=== PATIENT | male | born 1995 | race Caucasian/White ===

== ENCOUNTER → 2018-08-21 19:59 | Outpatient (CLI) | payer OTHER, SELFPAY | PROVIDERS: Family Provider Nurse Practitioner Family; PCP Nurse Practitioner Family; Visit Provider Nurse Practitioner Family | DX: R06.83 Snoring (principal) | CPT/HCPCS: 95810 ==

== ENCOUNTER → 2018-09-06 07:09 | Outpatient (CLI) | payer OTHER, SELFPAY ==
[2018-09-06 08:07] LABS: Absolute Lymphocyte Count 1.78 X10^3/ul (0.83-4.51); Absolute Neutrophil Count 3.2 X10^3/uL (2.0-7.7); Basophil# 0.02 X10^3/uL; Basophil% 0.4 % (0-1); Eosinophil# 0.11 X10^3/uL; Hematocrit 46.8 % (40-54); Hemoglobin 16.4 g/dl (13.0-16.5); Lymphocyte # 1.78 X10^3/ul (4.0); Lymphocyte % 31.6 % (19-41); Mean Corpuscular Hgb 29.9 pg (27.0-32.0); Mean Corpuscular Volume 85.4 fL (80-94); Monocyte# 0.54 X10^3/uL; Monocyte% 9.6 % (0-10); Neutrophil # 3.18 X10^3/uL (2.7-7.7); Neutrophil % 56.2 % (47-70); Platelet Count 258 K/mm3 (150-450); RBC Distribution Width CV 12.6 % (11.6-14.6); RBC Distribution Width SD 38.7 fl (35.1-43.9); Red Blood Count 5.48 M/mm3 (4.6-6.2); White Blood Count 5.6 K/mm3 (4.4-11.0)
[2018-09-06 08:10] LABS: POSITIVE COUNT NO; POSITIVE DIFFERENTIAL NO; POSITIVE MORPHOLOGY NO
[2018-09-06 08:45] LABS: ALB/GLOB Ratio 1.2 RATIO (0.9-2.4); AST(SGOT) 22 U/L (15-37); Alanine Aminotransfer ALT/SGPT 41 U/L (16-61); Albumin, Serum 3.8 g/dL (3.2-5.0); Alkaline Phosphatase 78 U/L (45-117); Anion Gap 7 (5-15); BUN 13 mg/dL (7-18); BUN/Creat Ratio 12.6 RATIO (10-20); Calcium,Total 8.8 mg/dL (8.5-10.1); Chloride 105 mmol/L (98-107); Cholesterol 133 mg/dL (200); Creatinine, Serum 1.03 mg/dL (0.70-1.30); EST Glomerular Filtration Rate 95 mL/min (>60); Est Glom Filt Rate - Afr Amer 115 mL/min (>60); Globulin 3.1 g/dL (2.2-4.2); Glucose 94 mg/dL (74-106); High Density Lipoprotein 47 mg/dL; Potassium 4.1 mmol/L (3.5-5.1); Protein, Total 6.9 g/dL (6.4-8.2); Sodium Level 141 mmol/L (136-145); Thyroid Stim Hormone (TSH) 2.01 uIU/mL (0.358-3.74); Triglycerides 88 mg/dL; Very Low Density Lipoprotein 18 mg/dL (5-40)
== END ==
PROVIDERS: Family Provider Family Medicine; PCP Family Medicine; Referring Provider Nurse Practitioner Family; Visit Provider Nurse Practitioner Family
DX: E66.9 Obesity, unspecified (principal); I10 Essential (primary) hypertension
CPT/HCPCS: 36415; 80053; 80061; 84443; 85025

== ENCOUNTER 2018-09-09 09:17 | Outpatient (RCR) | payer OTHER, SELFPAY | END 2018-09-18 23:59 | LOC: NS 09:17 | PROVIDERS: Family Provider Family Medicine; PCP Family Medicine; Visit Provider Internal Medicine | DX: E66.01 Morbid (severe) obesity due to excess calories (principal); Z68.41 Body mass index [BMI] 40.0-44.9, adult; Z71.3 Dietary counseling and surveillance | CPT/HCPCS: 97802 ==

== ENCOUNTER 2018-10-14 16:00 | Outpatient (RCR) | payer OTHER, SELFPAY | END 2018-10-18 23:59 | LOC: NS 16:00 | PROVIDERS: Family Provider Family Medicine; PCP Family Medicine; Visit Provider Internal Medicine | DX: E66.01 Morbid (severe) obesity due to excess calories (principal); Z68.41 Body mass index [BMI] 40.0-44.9, adult; Z71.3 Dietary counseling and surveillance | CPT/HCPCS: 97803 ==

== ENCOUNTER → 2018-10-14 20:00 | Outpatient (CLI) | payer OTHER, SELFPAY | PROVIDERS: Family Provider Family Medicine; PCP Family Medicine; Visit Provider Nurse Practitioner Acute Care | DX: G47.30 Sleep apnea, unspecified (principal) | CPT/HCPCS: 95811 ==

== ENCOUNTER 2018-11-07 11:24 | Outpatient (RCR) | payer OTHER, SELFPAY ==
[2018-09-06 10:43] VITALS: BMI 40.8
== END 2018-11-18 23:59 ==
LOC: NS 11:24
PROVIDERS: Family Provider Family Medicine; PCP Family Medicine; Visit Provider Internal Medicine
DX: E66.01 Morbid (severe) obesity due to excess calories (principal); Z68.41 Body mass index [BMI] 40.0-44.9, adult; Z71.3 Dietary counseling and surveillance
CPT/HCPCS: 97803

== ENCOUNTER 2018-11-28 13:52 | Outpatient (RCR) | payer OTHER, SELFPAY ==
[2018-09-06 10:43] VITALS: BMI 40.8
== END 2018-12-19 23:59 ==
LOC: NS 13:52
PROVIDERS: Family Provider Family Medicine; PCP Family Medicine; Visit Provider Internal Medicine
DX: E66.01 Morbid (severe) obesity due to excess calories (principal); Z68.41 Body mass index [BMI] 40.0-44.9, adult; Z71.3 Dietary counseling and surveillance
CPT/HCPCS: 97803

== ENCOUNTER 2019-01-01 15:33 | Outpatient (RCR) | payer OTHER, SELFPAY ==
[2018-12-05 14:02] VITALS: BMI 41.0
== END 2019-01-16 23:59 ==
LOC: NS 15:33
PROVIDERS: Family Provider Family Medicine; PCP Family Medicine; Visit Provider Internal Medicine
DX: E66.01 Morbid (severe) obesity due to excess calories (principal); Z68.41 Body mass index [BMI] 40.0-44.9, adult; Z71.3 Dietary counseling and surveillance
CPT/HCPCS: 97803

== ENCOUNTER 2019-02-10 16:18 | Outpatient (RCR) | payer OTHER, SELFPAY ==
[2018-12-05 14:02] VITALS: BMI 41.0
== END 2019-02-16 23:59 ==
LOC: NS 16:18
PROVIDERS: Family Provider Family Medicine; PCP Family Medicine; Visit Provider Internal Medicine
DX: E66.01 Morbid (severe) obesity due to excess calories (principal); Z68.41 Body mass index [BMI] 40.0-44.9, adult; Z71.3 Dietary counseling and surveillance
CPT/HCPCS: 97803

== ENCOUNTER → 2020-06-08 12:55 | Outpatient (CLI) | payer OTHER, SELFPAY ==
[2020-06-08 12:49] VITALS: BMI 41.0
--- NOTE | 2020-06-08 12:56 | RAD_ITS ---
STUDY: X-RAY - LEFT SHOULDER REASON FOR EXAM: Pain after lifting weights. TECHNIQUE: 4 view(s) of the shoulder. COMPARISON: None. FINDINGS: Normal glenohumeral articulation. Normal acromioclavicular joint. Normal acromion. Normal humeral head and visualized proximal humerus. The soft tissue structures are unremarkable. Normal visualized pulmonary apex. RAD/Shoulder min 2 Views IMPRESSION: Normal x-ray examination of the left shoulder. Electronically Signed: Sammy Castro MD at 13:31 EDT Tel , Service support ,
== END ==
PROVIDERS: PCP Family Medicine; Referring Provider Orthopaedic Surgery; Visit Provider Orthopaedic Surgery
DX: M25.512 Pain in left shoulder (principal)
CPT/HCPCS: 73030

== ENCOUNTER 2020-07-12 15:00 | Outpatient (RCR) | payer OTHER, SELFPAY ==
[2020-06-08 13:08] VITALS: BMI 33.7
--- NOTE | 2020-06-11 07:54 | HP.PTEVAL ---
Patient's Visit Information NGHIA MORRISON is a 24 year old M referred to Physical Therapy by Dr. Digna Hernadez DO with a diagnosis of L shoulder pain. Date of Evaluation: 06/11/20 Physical Therapist: Clint Alexander, DPT, OCS, CSCS - Visit Plan Frequency: 1-3x/week Duration: 4-6 Weeks Plan: start weekly to manage condition with Ret adn activitiy modification progressing to RC and scap/postural strength next session and then back to lifting if improved as he is 65% better right now. Will go to 3x/week for 4 weeks for ionto if improvment slows. Pec stretch adn phase 3 next session if doing better than 65% - Subjective Started wroking out again, benching one day and getting up from bench the L shoulder flet sore. and got worse as the day went along. That was 3 weeks ago. last 2 weeks has not gotten better. No pops or sudden pains. No bruising. External rotation hurts anteriorly. Abduction hurts. Improving since talked to marylin last week. Now is tolerable but there. She sent for PT. x rays were OK. Pin is front L shoulder adn is comfortable at rest. Pain is wthere at times in am and loosens up. Reaching up causes sensation. A little slight pain behind him. No numbness or tingling. Pain is not a problem at night. Is a teacher and coaches football. Football practice is not llimited but hurts to catch a ball sometimes. Stopped lifting after that incident. Basic ADLs are OK. Classroom will be OK, is R handed. - Pain L shoulder pain. Pain Intensity (Out of 10): 0 Pain Intensity Range: 0, 4 - Objective Posture is forward shoulder extreme and postural kyphosis. Tender to palpation slightly over biceps tendon adn moderately at supraspinatus tendon insertion. + L HK and neer. - labral tests, - ext rotation lag, - drop arm. AROM cervical and scap WNL adn painfree. Elbow and L wrist move well and without pain also. R shoulder aROM fulla dn painfree. L shoulder AROM full but pain at end range of ext rotation adn elevation, better at 90 degrees. reflexes 2/3 bi and triceps B. Sensation UE WNL to gross light touch. L shoulder rotators strong but pain with IR and ER, flexiona nd abduction also painful at 90 degrees but strong 4+/5. Biceps 5/5 adn triceps 5/5 without pain. - Goals Goal 1:: Patient have full aROM L shoulder without pain. Goal Time Frame: 2-4 Weeks Goal 2:: I approp HEp to manage condition and minimize future problems Goal Time Frame: 4-6 Weeks Goal 3:: Catch ball overhead without pain Goal Time Frame: 4-6 Weeks Goal 4:: Sleep without waking with pain Goal Time Frame: 4-6 Weeks - Rehabilitation Potential Physical Therapy Diagnosis: L shoulder pain likely supraspinatus strain Rehabilitation Potential: Good - Anticipated Interventions Patient/Client Instruction: Educate patient on: Condition, Plan of Care For the Purpose of:: To decrease pain, To decrease swelling/inflammation, To improve muscle performance and motor function, To increase tolerance to activity/condition/position Therapeutic Exercise to Include: Strength training, Postural training, Flexibilty training, Neuromotor development, Passive ROM, Active ROM, Scapular Strength/Stabilization For the Purpose of:: To decrease pain, To decrease swelling/inflammation, To improve muscle performance and motor function Manual Therapy Techniques to Include: Mobilization For the Purpose of:: To decrease pain Iontophoresis (with Dexamethozone, with Acetic acid): Yes Cryotherapy (ice pack, ice massage): Yes For the Purpose of:: To decrease swelling/inflammation Thank you for the opportunity to evaluate your patient. For Medicare and Medicare HMO plans, please review the plan of care and approve it. It will need to be FAXED BACK to us at [phone] for Medicare purposes. For Medicare only, by signing this I certify the plan of care. Please let me know if there are questions or concerns regarding this plan of care. Physician Signature: Date:
--- NOTE | 2020-08-26 09:59 | HP.PT.NRP ---
NGHIA MORRISON was seen in my office for initial evaluation on 06/11/20. The following Plan of Care was established for this patient: Initial Frequency: 1-3x/week Initial Duration: 4-6 Weeks Patient/Client Instruction: Educate patient on: Condition, Plan of Care For the Purpose of:: To decrease pain, To decrease swelling/inflammation, To improve muscle performance and motor function, To increase tolerance to activity/condition/position Therapeutic Exercise to Include: Strength training, Postural training, Flexibilty training, Neuromotor development, Passive ROM, Active ROM, Scapular Strength/Stabilization For the Purpose of:: To decrease pain, To decrease swelling/inflammation, To improve muscle performance and motor function Manual Therapy Techniques to Include: Mobilization For the Purpose of:: To decrease pain Iontophoresis (with Dexamethozone, with Acetic acid): Yes Cryotherapy (ice pack, ice massage): Yes For the Purpose of:: To decrease swelling/inflammation This patient was last seen in our office 07/12/20. Pertinent comments regarding their Physical therapy will appear below: Pt seen 5 visits of POC and was 75% better. He was to f/u three weeks later but did not schedule or attend. at this point, it has been over 5 weeks and I will discontinue due to nonattendance. At this point I will be discontinuing this patient from physical therapy. I would be happy to see this patient again in the future if found appropriate by the physician. Thank you! Clint Alexander, DPT, OCS, CSCS
== END 2020-07-12 19:00 | disposition home or self-care (01) ==
LOC: PT 15:00
PROVIDERS: PCP Family Medicine; Referring Provider Orthopaedic Surgery; Visit Provider Orthopaedic Surgery
DX: M25.512 Pain in left shoulder (principal)
CPT/HCPCS: 97110; 97161; 97530

== ENCOUNTER 2022-01-24 16:03 | Outpatient (CLI) | payer OTHER, SELFPAY ==
[2022-01-24 17:16] LABS: Absolute Lymphocyte Count 1.98 X10^3/uL (0.83-4.51); Absolute Neutrophil Count 5.4 X10^3/uL (2.0-7.7); Basophil# 0.03 X10^3/uL; Basophil% 0.4 % (0-1); Eosinophil# 0.04 X10^3/uL; Eosinophils% 0.5 % (0-5); Hematocrit 49.6 % (40-54); Hemoglobin 17.2 g/dL (13.0-16.5); Lymphocyte # 1.98 X10^3/ul (0.83-4.51); Lymphocyte % 24.7 % (19-41); Mean Corp Hgb Conc 34.7 g/dL (32-36); Mean Corpuscular Hgb 30.6 pg (27.0-32.0); Mean Corpuscular Volume 88.1 fL (80-94); Mean Platelet Vol. 9.4 fl (6.2-12.0); Monocyte# 0.52 X10^3/uL; Monocyte% 6.5 % (0-10); NRBC Flagged by Analyzer 0 % (0-5); Neutrophil # 5.44 X10^3/uL (2.7-7.7); Neutrophil % 67.7 % (47-70); Platelet Count 296 K/mm3 (150-450); RBC Distribution Width CV 11.9 % (11.6-14.6); RBC Distribution Width SD 38.1 fl (35.1-43.9); Red Blood Count 5.63 M/mm3 (4.6-6.2)
[2022-01-24 17:51] LABS: ALB/GLOB Ratio 1.3 RATIO (0.9-2.4); AST(SGOT) 23 U/L (15-37); Alanine Aminotransfer ALT/SGPT 36 U/L (16-61); Albumin, Serum 4.5 g/dL (3.2-5.0); Alkaline Phosphatase 80 U/L (45-117); Anion Gap 6 (5-15); BUN 13 mg/dL (7-18); Calcium,Total 9.4 mg/dL (8.5-10.1); Chloride 104 mmol/L (98-107); Cholesterol 145 mg/dL (200); Creatinine, Serum 1.08 mg/dL (0.70-1.30); EST Glomerular Filtration Rate 88 mL/min (>60); Est Glom Filt Rate - Afr Amer 106 mL/min (>60); Globulin 3.4 g/dL (2.2-4.2); Glucose 91 mg/dL (74-106); High Density Lipoprotein 62 mg/dL; Potassium 4.3 mmol/L (3.5-5.1); Protein, Total 7.9 g/dL (6.4-8.2); Sodium Level 138 mmol/L (136-145); Thyroid Stim Hormone (TSH) 1.55 uIU/mL (0.358-3.74); Triglycerides 39 mg/dL; Very Low Density Lipoprotein 8 mg/dL (5-40)
== END 2022-01-24 23:59 | disposition home or self-care (01) ==
LOC: BIMLAB 16:04
PROVIDERS: PCP Family Medicine; Referring Provider Physician Assistant; Visit Provider Physician Assistant
DX: F41.9 Anxiety disorder, unspecified (principal); Z13.29 Encounter for screening for other suspected endocrine disorder; R13.10 Dysphagia, unspecified
CPT/HCPCS: 36415; 80053; 80061; 84443; 85025

== ENCOUNTER 2022-04-06 05:37 | Day surgery (SDC) | payer OTHER, SELFPAY ==
--- NOTE | 2022-04-06 | ESO_PTH ---
PATIENT: NGHIA MORRISON LOC: EN U#:[id number] AGE/SX: 26/M ROOM: RE04/06/[address]: Dr. Jonny Kinsey DO : 1995 BED: DIS: 04/06/2022 SPEC #: [id number] RECD: 04/06/22 12:08 STATUS: TIFFANY MAU #: [id number] SHAN: 04/06/22 00:[address]: Jonny Kinsey DEPT: SURGICAL PATHOLOGY RECD BY: Agus South ENTERED: 04/06/22 12:08 SP TYPE: PAT ROSSI DR: Dr. David Doran DO Tissues: Esophagus, NOS Procedures: Special Stain Group II Surgery Specimen Level IV Alcian Blue/PAS (control) HEADER OPERATION: EGD ([facility] [place]) PRE-OP DIAGNOSIS: GERD, esophageal cancer TISSUE SUBMITTED: Distal esophagus biopsy MICROSCOPIC DIAGNOSIS Distal esophagus, biopsy: Gastroesophageal junction with chronic inflammation. Focal changes of reflux. 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 No evidence of dysplasia. See comment. AM:blossom 04/07/2022 COMMENT Alcian blue/PAS stain with matched control supports the above diagnosis. MICROSCOPIC DESCRIPTION Slides are reviewed. GROSS DESCRIPTION Received in fixative is one container labeled with the patient's name and designated distal esophagus biopsy. The specimen consists of multiple irregular fragments of light payan soft tissue that in aggregate measure 1.5 x 0.3 x 0.1 cm. The specimen is totally submitted in one cassette. / SJ:blossom 04/06/2022 TC:3 CPT: 97106, 16656
--- NOTE | 2022-04-06 | IMM_PTH ---
PATIENT: NGHIA MORRISON LOC: EN U#:[id number] AGE/SX: 26/M ROOM: RE04/06/[address]: Dr. Jonny Kinsey DO : 1995 BED: DIS: 04/06/2022 SPEC #: [id number] RECD: 04/07/22 15:06 STATUS: TIFFANY REQ #: [id number] SHAN: 04/06/22 00:[address]: Jonny Kinsey DEPT: IMMUNOHISTOCHEMISTRY RECD BY: Carmen Ayala ENTERED: 04/07/22 15:07 SP TYPE: IMMUNO OTHR DR: Dr. David Doran DO Tissues: Esophagus, NOS Procedures: P53 (initial) KI-67 (add) PHYSICIAN & [place] [id number] SPECIMEN INFORMATION: Tissue Source: Distal esophagus biopsy Clinical Info: GERD, esophageal cancer Specimen Number: [id number] CPT code: 80326, 66185 METHODOLOGY: Deparaffinized sections of prefer/formalin-fixed tissue or PAP/DQ stained slides are incubated with monoclonal/polyclonal antibodies/oligonucleotide probes. Localization is made via biotin free immunoperoxidase method. Appropriate controls are performed and reacted as expected. Results on target cell population are indicated in the following table: RESULTS: ANTIBODY / CLONE RESULT P53 (DO-7) negative Ki-67 (30-9) positive, low These tests were developed and their performance characteristics determined by [facility]. They may not have been cleared or approved by the U.S. Food and Drug Administration. The FDA has determined that such clearance or approval is not necessary. The above immunohistochemical/dualISH markers are ordered and reviewed by the Pathologist. INTERPRETATION: Distal esophagus, biopsy: No evidence of dysplasia. AM:blossom 04/10/2022
[2022-04-06 06:08] VITALS: BP 152/83; PULSE 16; RESP 16; TEMP 36.4; O2SAT 100; BMI 32.6
[2022-04-06] MEDS: Lactated Ringers 1,000 ML 15 ML IV (06:11)
--- NOTE | 2022-04-06 06:31 | HP.PCM_ITS ---
History and Physical Date of Admission: 04/06/22 NGHIA MORRISON, is a 26 M who presents to the office today for acid reflux, recent dysphagia, father of esophageal cancer Pt is interested in having an upper endoscopy considering his father's hx of esophageal cancer. Recent 2 yr anniversary of his father's , that caused pt to have significant increase in anxiety. Pt's mother told him to watch for difficulty swallowing food--that caused pt to be hyper focused on swallowing, to the point where he had difficulty swallowing. He went 4 days w/o food, then ate soup, then back to regular foods. With increased anxiety he made poor food choices, that caused him to have acid reflux at night. He used to weigh 300 lbs, he regularly had acid reflux then; since losing weight he hasn't had an issue with GERD until last month. Now that he is back on antianxiety medicine, he feels better in general, not having any dysphagia or acid reflux now. No nausea, vomiting, abd pain. No diarrhea, constipation, melena, hematochezia. 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 ROS Const Constitutional: No fatigue ENT ENT: No difficulty swallowing Gastro GI: Positive for heartburn; No abdominal pain, belching, bloating, change in bowel habits, change in stool character, coffee ground emesis, constipation, cramping, diarrhea, difficulty swallowing, feeling full early, excessive flatus, incontinent of stools, Vomiting blood/hematemesis, Blood in stool, loose stools, Black,tarry stools, nausea/dyspepsia, pain with swallowing, vomiting or other Musc Musculoskeletal: No joint pain Skin Skin: No yellowing of the eye or itchy eyes Psych Psychiatric: Positive for anxiety and No depression Endo Endocrine: No fatigue Aller/Imm Allergy/Immunologic: No itchy eyes Mynor/Lymp Hematologic/Lymphatic: No easy bleeding or easy bruising Exam Const General: cooperative, healthy appearing, well developed, well groomed and anxious Resp Effort & Inspection: normal respiratory effort GI Inspection: normal to inspection Palpation: soft, no hepatosplenomegaly and nontender Quality Reporting Tobacco Screening ([facility] 138) Smoking Status: Never smoker Assessment and Plan Assessment and Plan (1) GERD (gastroesophageal reflux disease): Status: Acute (2) FH: esophageal cancer: Status: Acute Plan - Dian Herndon MARKETING SERVICES MANAGER, MARKETING SERVICES MANAGER-C: 26 yr old male with hx of acid reflux before losing weight and if he makes poor food choices. Recent dysphagia with flare of anxiety, and the anniversary of his father's from esophageal cancer. We will schedule him for EGD to evaluate for Bueno's. f/u 2 wks after EGD I have re-examined the patient. There are no clinical changes since date of exam.
[2022-04-06 06:54] VITALS: BP 101/39; BP 152/83; PULSE 55; RESP 18; TEMP 36.6; O2SAT 97
--- NOTE | 2022-04-06 06:57 | OP.EGD_ITS ---
Patient Name: Romeo Nicolas Procedure Date: 04/06/2022 6:13 AM Date of : 1995 Age: 26 Procedure: Upper GI endoscopy Indications: Heartburn Providers: Jonny Kinsey DO Medicines: Monitored Anesthesia Care Patient Profile: This is a 26 year old male. Refer to note in patient chart for documentation of history and physical. Complications: No immediate complications. Procedure: Pre-Anesthesia Assessment: - Prior to the procedure, a History and Physical was performed, and patient medications and allergies were reviewed. The risks and benefits of the procedure and the sedation options and risks were discussed with the patient. All questions were answered and informed consent was obtained. Patient identification and proposed procedure were verified by the physician in the pre-procedure area. Mental Status Examination: alert and oriented. Airway Examination: normal oropharyngeal airway and neck mobility. Respiratory Examination: clear to auscultation. CV Examination: normal. Prophylactic Antibiotics: The patient does not require prophylactic antibiotics. Prior Anticoagulants: The patient has taken no previous anticoagulant or antiplatelet agents. After reviewing the risks and benefits, the patient was deemed in satisfactory condition to undergo the procedure. The anesthesia plan was to use moderate sedation / analgesia (conscious sedation). Immediately prior to administration of medications, the patient was re-assessed for adequacy to receive sedatives. The heart rate, respiratory rate, oxygen saturations, blood pressure, adequacy of pulmonary ventilation, and response to care were monitored throughout the procedure. The physical status of the patient was re-assessed after the procedure. After obtaining informed consent, the endoscope was passed under direct vision. Throughout the procedure, the patient's blood pressure, pulse, and oxygen saturations were monitored continuously. The gastroscope was introduced through the mouth, and advanced to the second part of duodenum. The upper GI endoscopy was accomplished without difficulty. The patient tolerated the procedure well. Scope In: 6:41:23 AM Scope Out: 6:48:44 AM Total Procedure Duration Time 0 hours 7 minutes 21 seconds Findings: Three tongues of salmon-colored mucosa were present from 35 to 39 cm. Hiatal narrowing was identified at 40 cm. The maximum longitudinal extent of these esophageal mucosal changes was 3 cm in length. Biopsies were taken with a cold forceps for histology. Verification of patient identification for the specimen was done. Estimated blood loss was minimal. A small hiatal hernia was present. The entire examined stomach was normal. The second portion of the duodenum was normal. Impression: - Foreman-colored mucosa suspicious for short-segment Bueno's esophagus. Biopsied. - Small hiatal hernia. - Normal stomach. - Normal second portion of the duodenum. Recommendation: - Discharge patient to home. - Resume previous diet. - Continue present medications. - Await pathology results. Procedure Code(s): --- Professional --- 22642, Esophagogastroduodenoscopy, flexible, transoral; with biopsy, single or multiple CPT copyright 2017 [employer]. All rights reserved. The codes documented in this report are preliminary and upon qualification engineer review may be revised to meet current compliance requirements. Jonny Kinsey DO 04/06/2022 6:56:53 AM This report has been signed electronically. Number of Addenda: 1 Note Initiated On: 04/06/2022 6:13 AM Addendum Number: 1 Addendum Date: 08/18/2022 6:17:33 AM MAC was used as sedation for this procedure. Jonny Kinsey DO 08/18/2022 6:17:36 AM This report has been signed electronically.
--- NOTE | 2022-04-06 06:58 | OP.CCLET_ITS ---
08/18/2022 David Doran Re : Upper GI endoscopy procedure for Romeo Nicolas Dear Dr. Doran This procedure was performed on March. My impressions and recommendations are as follows: Impressions : - Winger-colored mucosa suspicious for short-segment Bueno's esophagus. Biopsied. - Small hiatal hernia. - Normal stomach. - Normal second portion of the duodenum. Recommendations : - Discharge patient to home. - Resume previous diet. - Continue present medications. - Await pathology results. My findings are described in the full procedure note, which is enclosed. If I can be of further assistance, please feel free to contact me at . Sincerely, Jonny Kinsey, 04/06/2022 6:56:53 AM This report has been signed electronically.
[2022-04-06 06:59] VITALS: BP 111/57; BP 152/83; PULSE 57; RESP 16; O2SAT 57
[2022-04-06 07:05] VITALS: BP 103/59; BP 152/83; PULSE 51; RESP 16; O2SAT 97
[2022-04-06 07:10] VITALS: BP 102/57; BP 152/83; PULSE 51; RESP 16; TEMP 37.1; O2SAT 98
[2022-04-06 07:20] VITALS: BP 152/83
== END 2022-04-06 07:35 | disposition home or self-care (01) ==
LOC: EN 05:42 → AC 05:44
PROVIDERS: PCP Family Medicine; Referring Provider Family Medicine; Visit Provider Internal Medicine Gastroenterology
PROC: 0DJ08ZZ Inspection of Upper Intestinal Tract, Via Natural or Artificial Opening Endoscopic (ICD-10-PCS; CPT 43235; principal; 2022-04-06 06:25)
DX: K44.9 Diaphragmatic hernia without obstruction or gangrene (principal); Z80.0 Family history of malignant neoplasm of digestive organs; I10 Essential (primary) hypertension; G47.30 Sleep apnea, unspecified; Z72.89 Other problems related to lifestyle; K21.9 Gastro-esophageal reflux disease without esophagitis
CPT/HCPCS: 43239; 88305; 88313; 88341; 88342; J7120; J2405

== ENCOUNTER 2023-06-11 06:17 | Day surgery (SDC) | payer OTHER, SELFPAY ==
[2023-06-11 06:37] VITALS: BP 144/74; PULSE 78; RESP 18; TEMP 36.7; O2SAT 100; BMI 35.1
[2023-06-11] MEDS: Lactated Ringers 1,000 ML 15 ML IV (06:55)
--- NOTE | 2023-06-11 07:09 | PCM.HP.BLA ---
History and Physical Date of Admission: 06/11/23 NGHIA MORRISON, is a 26 M who presents to the office today for discussion of recent EGD findings and biopsy results. Dr Kinsey found esophageal changes suspicious for Bueno's, and in fact the biopsy is positive for Bueno's, negative for dysplasia. He has a small hiatal hernia. He has acid reflux, recent dysphagia, and his father of esophageal cancer. He has anxiety, that has made dysphagia worse. He used to weigh 300 lbs, he regularly had acid reflux then; since losing weight he hasn't had an issue with GERD until recently, specifically around the anniversary of his father's . Now that he is back on antianxiety medicine, he feels better in general, not having any dysphagia or acid reflux now. No nausea, vomiting, abd pain. No diarrhea, constipation, melena, hematochezia. 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 Biopsied. - Small hiatal hernia. - Normal stomach. - Normal second portion of the duodenum. 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 ROS Const Constitutional: No fatigue ENT ENT: No difficulty swallowing Gastro GI: No abdominal pain, belching, bloating, change in bowel habits, change in stool character, coffee ground emesis, constipation, cramping, diarrhea, heartburn, difficulty swallowing, feeling full early, excessive flatus, incontinent of stools, Vomiting blood/hematemesis, Blood in stool, loose stools, Black,tarry stools, nausea/dyspepsia, pain with swallowing, vomiting or other Musc Musculoskeletal: No joint pain Skin Skin: No yellowing of the eye or itchy eyes Psych Psychiatric: Positive for anxiety, No depression and Positive for hyperactivity Endo Endocrine: No fatigue Aller/Imm Allergy/Immunologic: No itchy eyes Mynor/Lymp Hematologic/Lymphatic: No easy bleeding or easy bruising Exam Const General: cooperative, comfortable, well developed and well groomed Nutritional Appearance: overweight Eyes General: appearance normal, both eyes and all related structures Resp Effort & Inspection: normal respiratory effort Skin General: no rashes or lesions noted Neuro Gait: normal gait Quality Reporting Tobacco Screening ([facility] 138) Smoking Status: Never smoker Assessment and Plan Assessment and Plan (1) FH: esophageal cancer: Status: Acute (2) Bueno's esophagus: Status: Acute Orders: Referrals: Gastroenterology Z80.0, K22.70 Plan - Dian Herndon HYDRAULIC BILLET MAKER, HYDRAULIC BILLET MAKER-C: 26-year-old male with Bueno's esophagus and his father of esophageal cancer. He has significantly less acid reflux since losing weight. He plans on losing more weight. We will start him on pantoprazole 40 mg twice daily he can decrease to every morning dosing after 2 months. He is very interested in esophageal ablation for his Bueno's considering his family history and his young age. We will refer to [facility] for possible ablation. He can follow-up with us after that. Plan Details Other Medications: New: pantoprazole 40 mg PO BID 180 tabs 0RF I have examined the patient and the H&P has been reviewed. There are no clinical changes since date of exam.
[2023-06-11 08:05] VITALS: BP 127/82; BP 144/74; PULSE 64; RESP 12; TEMP 36.9; O2SAT 99
--- NOTE | 2023-06-11 08:09 | OP.EGD_ITS ---
Patient Name: Romeo Nicolas Procedure Date: 06/11/2023 7:35 AM Date of : 1995 Age: 27 Procedure: Upper GI endoscopy Indications: For therapy of Bueno's esophagus Providers: Jonny Kinsey DO Referring MD: Jonny Kinsey DO Medicines: Monitored Anesthesia Care Patient Profile: This is a 27 year old male. Refer to note in patient chart for documentation of history and physical. Patient has symptoms of chronic heartburn. Complications: No immediate complications. Procedure: Pre-Anesthesia Assessment: - Prior to the procedure, a History and Physical was performed, and patient medications and allergies were reviewed. The patient is competent. The risks and benefits of the procedure and the sedation options and risks were discussed with the patient. All questions were answered and informed consent was obtained. Patient identification and proposed procedure were verified by the physician. Mental Status Examination: normal. CV Examination: normal. Prophylactic Antibiotics: The patient does not require prophylactic antibiotics. Prior Anticoagulants: The patient has taken no previous anticoagulant or antiplatelet agents. ASA Grade Assessment: II - A patient with mild systemic disease. After reviewing the risks and benefits, the patient was deemed in satisfactory condition to undergo the procedure. The anesthesia plan was to use monitored anesthesia care (MAC). Immediately prior to administration of medications, the patient was re-assessed for adequacy to receive sedatives. The heart rate, respiratory rate, oxygen saturations, blood pressure, adequacy of pulmonary ventilation, and response to care were monitored throughout the procedure. The physical status of the patient was re-assessed after the procedure. After obtaining informed consent, the endoscope was passed under direct vision. Throughout the procedure, the patient's blood pressure, pulse, and oxygen saturations were monitored continuously. The gastroscope was introduced through the mouth, and advanced to the second part of duodenum. The upper GI endoscopy was accomplished without difficulty. The patient tolerated the procedure well. Scope In: 7:45:33 AM Scope Out: 7:57:57 AM Total Procedure Duration Time 0 hours 12 minutes 24 seconds Findings: The esophagus and gastroesophageal junction were examined with white light and narrow band imaging (NBI) from a forward view and retroflexed position. There were esophageal mucosal changes secondary to established short-segment Bueno's disease. These changes involved the mucosa at the upper extent of the gastric folds (38 cm from the incisors) extending to the Z-line (42 cm from the incisors). [place]-colored mucosa was present. The maximum longitudinal extent of these esophageal mucosal changes was 4 cm in length. Focal radiofrequency ablation of Bueno's esophagus was performed. With the endoscope in place, the position and extent of the Bueno's mucosa and the anatomic landmarks including top of gastric folds were noted. Endoscopic visualization identified an ablation site including the entire visible Bueno's segment. The Bueno's mucosa was irrigated with saline. Esophageal contents were suctioned. The endoscope was then removed from the patient. The Barrx-90 radiofrequency ablation catheter was attached to the tip of the endoscope. The endoscope with the attached radiofrequency ablation catheter was then passed transorally under direct vision into the esophagus and advanced to the areas of Bueno's mucosa. The areas included islands of Bueno's mucosa. The radiofrequency ablation catheter was placed in contact with the surface of the Bueno's mucosa under direct visualization and energy was applied twice at 12 J/cm2. Ablation was repeated in a likewise fashion to the entire area of suspected Bueno's mucosa. The ablation zone was cleaned of coagulative debris. The ablation catheter and endoscope were then removed and the catheter was cleaned. The catheter and endoscope were reinserted into the esophagus. A second round of ablation was then performed. Energy was applied twice at 12 J/cm2 to retreat the areas of Bueno's epithelium that had been treated with the first series of ablation. The areas of the esophagus where Bueno's mucosa had been ablated were examined. Areas of visible Bueno's esophagus were completely ablated. Estimated blood loss was minimal. A small hiatal hernia was present. The entire examined stomach was normal. The first portion of the duodenum was normal. 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 Treated with radiofrequency ablation. - Small hiatal hernia. - Normal stomach. - Normal first portion of the duodenum. - No specimens collected. Recommendation: - Repeat upper endoscopy in 3 months for follow-up of Bueno's ablation. - Continue present medications. Procedure Code(s): --- Professional --- 44018, Esophagogastroduodenoscopy, flexible, transoral; with ablation of tumor(s), polyp(s), or other lesion(s) (includes pre- and post-dilation and guide wire passage, when performed) CPT copyright 2017 [employer]. All rights reserved. The codes documented in this report are preliminary and upon mine laborer review may be revised to meet current compliance requirements. Jonny Kinsey DO 06/11/2023 8:09:02 AM This report has been signed electronically. Number of Addenda: 0 Note Initiated On: 06/11/2023 7:35 AM
[2023-06-11 08:10] VITALS: BP 127/67; BP 144/74; PULSE 74; RESP 14; O2SAT 95
--- NOTE | 2023-06-11 08:10 | OP.CCLET_ITS ---
06/11/2023 David Doran Re : Upper GI endoscopy procedure for Romeo Gascaholder Dear Dr. Doran This procedure was performed on Sunday, June 11, 2023. My impressions and recommendations are as follows: Impressions : - Esophageal mucosal changes secondary to established short-segment Bueno's disease. Treated with radiofrequency ablation. - Small hiatal hernia. - Normal stomach. - Normal first portion of the duodenum. - No specimens collected. Recommendations : - Repeat upper endoscopy in 3 months for follow-up of Bueno's ablation. - Continue present medications. My findings are described in the full procedure note, which is enclosed. If I can be of further assistance, please feel free to contact me at . Sincerely, Jonny Kinsey, 06/11/2023 8:09:02 AM This report has been signed electronically.
[2023-06-11 08:15] VITALS: BP 126/59; BP 144/74; PULSE 66; RESP 14; O2SAT 97
[2023-06-11 08:20] VITALS: BP 130/64; BP 144/74; PULSE 62; RESP 16; TEMP 36.7; O2SAT 97
[2023-06-11 08:46] VITALS: BP 144/74
== END 2023-06-11 08:56 | disposition home or self-care (01) ==
LOC: EN 06:19 → AC 06:21
PROVIDERS: PCP Family Medicine; Referring Provider Family Medicine; Visit Provider Internal Medicine Gastroenterology
PROC: 0DJ08ZZ Inspection of Upper Intestinal Tract, Via Natural or Artificial Opening Endoscopic (ICD-10-PCS; CPT 43235; principal; 2023-06-11 07:25)
DX: K44.9 Diaphragmatic hernia without obstruction or gangrene (principal); Z80.0 Family history of malignant neoplasm of digestive organs; K22.70 Barrett's esophagus without dysplasia
CPT/HCPCS: 43270; J7120; J2405

== ENCOUNTER → 2023-06-20 | Outpatient (CLI) | payer SELFPAY ==
[2023-06-20 13:17] LABS: ALB/GLOB Ratio 1.4 RATIO (0.9-2.4); AST(SGOT) 32 U/L (15-37); Alanine Aminotransfer ALT/SGPT 35 U/L (16-61); Albumin, Serum 4.2 g/dL (3.2-5.0); Alkaline Phosphatase 59 U/L (45-117); Anion Gap 5 (5-15); BUN 15 mg/dL (7-18); BUN/Creat Ratio 13.9 RATIO (10-20); Chloride 107 mmol/L (98-107); Creatinine, Serum 1.08 mg/dL (0.70-1.30); EST Glomerular Filtration Rate 87 mL/min (>60); Est Glom Filt Rate - Afr Amer 105 mL/min (>60); Glucose 108 mg/dL (74-106); Potassium 3.5 mmol/L (3.5-5.1); Protein, Total 7.2 g/dL (6.4-8.2); Sodium Level 139 mmol/L (136-145)
== END | disposition home or self-care (01) ==
PROVIDERS: PCP Family Medicine; Visit Provider Family Medicine
DX: I10 Essential (primary) hypertension (principal)
CPT/HCPCS: 36415; 80053

== ENCOUNTER → 2024-04-17 | Outpatient (CLI) | payer OTHER, SELFPAY ==
--- NOTE | 2024-04-17 06:36 | MRI_ITS ---
STUDY: MRI RIGHT WRIST WITHOUT CONTRAST REASON FOR EXAM: Male, 28 years old. Evaluate scaphoid AVN or ECRL disruption. TECHNIQUE: Standardized fat and water weighted pulse sequences were obtained in all 3 orthogonal planes. COMPARISON: Right wrist MRI dated 06/12/2017. FINDINGS: Normal visualized distal radius and ulna. Normal distal radioulnar articulation (DRUJ). Normal triangular fibrocartilaginous complex (TFCC). 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 There is no evidence of avascular necrosis. There is triscaphe arthrosis with mild juxta-articular marrow edema in the distal pole of the scaphoid (coronal STIR series 6 images 13-17). Normal radiocarpal, intercarpal and midcarpal articulations. Normal pisotriquetral articulation. Normal visualized interosseous scapholunate ligament. There is mild tenosynovitis of the extensor carpi radialis brevis tendon and abductor pollicis longus tendon (axial STIR series 4 images 24-28). Normal remainder of the extensor tendons. Normal flexor tendons. Normal carpal tunnel with a normal median nerve. There is mild degenerative arthrosis at the first CMC joint. Normal second through fifth carpometacarpal articulations. Normal visualized metacarpal bones. 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 Mild tenosynovitis of the extensor carpi radialis brevis tendon and abductor pollicis longus tendon. Mild degenerative arthrosis at the first CMC joint. Electronically Signed: Abhinav Miranda MD at 8:15 EDT ,
== END | disposition home or self-care (01) ==
PROVIDERS: PCP Family Medicine; Referring Provider Orthopaedic Surgery Sports Medicine; Visit Provider Orthopaedic Surgery Sports Medicine
DX: M25.531 Pain in right wrist (principal)
CPT/HCPCS: 73221

== ENCOUNTER → 2024-06-11 | Outpatient (CLI) | payer OTHER, SELFPAY ==
[2024-06-11 12:40] LABS: ALB/GLOB Ratio 1.3 RATIO (0.9-2.4); AST(SGOT) 31 U/L (15-37); Alanine Aminotransfer ALT/SGPT 45 U/L (16-61); Albumin, Serum 4.1 g/dL (3.2-5.0); Alkaline Phosphatase 67 U/L (45-117); Anion Gap 4 (5-15); BUN 18 mg/dL (7-18); BUN/Creat Ratio 16.4 RATIO (10-20); Calcium,Total 9.8 mg/dL (8.5-10.1); Chloride 105 mmol/L (98-107); EST Glomerular Filtration Rate 84 mL/min (>60); Est Glom Filt Rate - Afr Amer 102 mL/min (>60); Globulin 3.2 g/dL (2.2-4.2); Glucose 110 mg/dL (74-106); Potassium 4.4 mmol/L (3.5-5.1); Protein, Total 7.3 g/dL (6.4-8.2); Sodium Level 139 mmol/L (136-145)
== END | disposition home or self-care (01) ==
LOC: BIMLAB 09:17
PROVIDERS: PCP Family Medicine; Referring Provider Family Medicine; Visit Provider Family Medicine
DX: I10 Essential (primary) hypertension (principal)
CPT/HCPCS: 36415; 80053

== ENCOUNTER → 2025-06-18 | Outpatient (CLI) | payer OTHER, SELFPAY ==
[2025-06-18 12:34] LABS: Hematocrit 47.3 % (40-54); Hemoglobin 16.2 g/dL (13.0-16.5); Immature Granulocytes Count 0.040 X10^3/uL (0.0-0.0); Mean Corp Hgb Conc 34.2 g/dL (32-36); Mean Corpuscular Volume 87.6 fL (80-94); Mean Platelet Vol. 9.6 fl (6.2-12.0); NRBC Flagged by Analyzer 0 % (0-5); Platelet Count 224 K/mm3 (150-450); RBC Distribution Width CV 12.4 % (11.6-14.6); RBC Distribution Width SD 39.4 fl (35.1-43.9); Red Blood Count 5.40 M/mm3 (4.6-6.2); White Blood Count 6.2 K/mm3 (4.4-11.0)
[2025-06-18 13:01] LABS: AST(SGOT) 24 U/L (<=37); Alanine Aminotransfer ALT/SGPT 33 U/L (<=46); Albumin, Serum 4.7 g/dL (3.5-5.0); Alkaline Phosphatase 65 U/L (40-129); Anion Gap 11 (5-15); BUN 19 mg/dL (4-19); BUN/Creat Ratio 18.2 RATIO (10-20); Calcium,Total 9.7 mg/dL (7.6-11.0); Carbon Dioxide 26.5 mmol/L (21.0-32.0); Chloride 104 mmol/L (98-108); Globulin 2.3 g/dL (2.2-4.2); Glucose 98 mg/dL (70-99); Potassium 4.0 mmol/L (3.3-5.1)
== END | disposition home or self-care (01) ==
LOC: BIMLAB 08:51
PROVIDERS: PCP Family Medicine; Referring Provider Family Medicine; Visit Provider Family Medicine
DX: Z02.89 Encounter for other administrative examinations (principal); I10 Essential (primary) hypertension
CPT/HCPCS: 36415; 80053; 85025